=== PATIENT | female | born 1985 | race Two or more races ===

== ENCOUNTER 2017-07-09 23:19 | Emergency (ER) | payer MEDICAID ==
[~2017-07-09] VITALS: Ht 157.5 cm; Wt 70.3 kg
[~2017-07-09 23:19] MED LIST: CITA20TA3 PO; LEVO200I5 PO; NOR7.5T PO
[2017-07-09 23:50] VITALS: BP 159/91
[2017-07-10 01:14] LABS: Urine Bilirubin Negative (Negative); Urine Blood 2+ /uL (Negative); Urine Ca Oxalate Crystal FEW (None Seen); Urine Color Yellow (Yellow); Urine Glucose Normal (Normal); Urine Ketone Negative (Negative); Urine Nitrite Negative (Negative); Urine RBC 33 /hpf (0 - 4); Urine Squamous Epithelial Cell FEW /hpf (<5); Urine Urobilinogen Normal (Negative)
== END 2017-07-10 01:56 | disposition home or self-care (01) ==
LOC: EDBD 23:19 → ER 23:24
DX: T40.7X1A Poisoning by cannabis (derivatives), accidental (unintentional), initial encounter (principal); Y92.89 Other specified places as the place of occurrence of the external cause; Y99.8 Other external cause status; Y93.89 Activity, other specified
CPT/HCPCS: 80307; 81001; 93005